=== PATIENT | male | born 1985 | race Caucasian/White ===

== ENCOUNTER 2017-03-21 18:04 | Emergency (ER) | payer OTHER ==
[2017-03-21] MEDS ORDERED: IPRATROPIUM-ALBUTEROL 3 ML NEB INHALATION STA (19:28)
--- NOTE | 2017-03-21 19:33 | ED ---
General Adult HPI - General Chief complaint: Shortness of Breath Stated complaint: Diff Breathing, congested Time Seen by Provider: 03/21/17 18:15 Source: patient, RN notes reviewed Mode of arrival: ambulatory Limitations: no limitations - History of Present Illness Initial comments: This is a 31-year-old male who has a past medical history significant for smoking which she continues to do. Patient states he woke up this morning and was having some shortness of breath and a slight cough. Patient states occasionally had some right-sided chest pain when he was coughing but other night he feels fine. Patient denies any fever chills. Patient states his shortness of breath is only mild. Patient's denies any sputum production. Patient denies any abdominal pain. Patient states she did not follow up today with his primary medical care doctor he worked all day instead. Patient denies any headache patient denies lightheadedness dizziness or near syncopal episode. Patient denies any recent travel or trip. Patient denies any calf pain or leg swelling. - Related Data Previous Rx's Medication Instructions Recorded Albuterol Inhaler [Ventolin Hfa 1 - 2 puff INHALATION Q6HR PRN #2 03/21/17 Inhaler] puff predniSONE 40 mg PO DAILY #8 tab 03/21/17 Allergies Allergy/AdvReac Type Severity Reaction Status Date / Time cefazolin [From Anc] Allergy Rash/Hives Verified 03/21/17 18:17 Review of Systems ROS Statement: Those systems with pertinent positive or pertinent negative responses have been documented in the HPI. ROS Other: All systems not noted in ROS Statement are negative. Past Medical History Additional Past Medical History / Comment(s): right sided lung nodule History of Any Multi-Drug Resistant Organisms: None Reported Additional Past Surgical History / Comment(s): nasal surgery Past Psychological History: No Psychological Hx Reported Smoking Status: Current every day smoker Past Alcohol Use History: Occasional Past Drug Use History: None Reported General Exam - General Exam Comments Initial Comments: GENERAL: Patient is well-developed and well-nourished. Patient is nontoxic and well- hydrated and is in mild distress. ENT: Neck is soft and supple. No significant lymphadenopathy is noted. Oropharynx is clear. Moist mucous membranes. Neck has full range of motion without eliciting any pain. EYES: The sclera were anicteric and conjunctiva were pink and moist. Extraocular movements were intact and pupils were equal round and reactive to light. Eyelids were unremarkable. PULMONARY: Unlabored respirations. Good breath sounds bilaterally. No audible rales rhonchi or wheezing was noted. CARDIOVASCULAR: There is a regular rate and rhythm without any murmurs gallops or rubs. ABDOMEN: Soft and nontender with normal bowel sounds. No palpable organomegaly was noted. There is no palpable pulsatile mass. SKIN: Skin is clear with no lesions or rashes and otherwise unremarkable. NEUROLOGIC: Patient is alert and oriented x3. Cranial nerves II through XII are grossly intact. Motor and sensory are also intact. Normal speech, volume and content. Symmetrical smile. MUSCULOSKELETAL: Normal extremities with adequate strength and full range of motion. LYMPHATICS: No significant lymphadenopathy is noted PSYCHIATRIC: Normal psychiatric evaluation. Limitations: no limitations Course Vital Signs 03/21/17 03/21/17 03/21/17 18:13 19:43 19:53 Temperature 97 F L Pulse Rate 93 90 92 Respiratory 18 Rate Blood Pressure 131/75 O2 Sat by Pulse 98 Oximetry 03/21/17 20:02 Temperature Pulse Rate 84 Respiratory 17 Rate Blood Pressure 128/73 O2 Sat by Pulse 99 Oximetry Medical Decision Making - Medical Decision Making EKG shows normal sinus rhythm at 73 bpm KS interval 230 QRS is under 2 QT interval 366 QTC is 403. Patient's chest x-ray shows no acute abnormality. Patient got a breathing treatment emergency department he stated that if they didn't feel better. Disposition Clinical Impression: Acute bronchospasm Disposition: HOME SELF-CARE Condition: Good Instructions: Bronchospasm (ED) Prescriptions: Albuterol Inhaler [Ventolin Hfa Inhaler] 1 - 2 puff INHALATION Q6HR PRN #2 puff PRN Reason: Difficulty breathing predniSONE 40 mg PO DAILY #8 tab Referrals: Joel Desai DO [Primary Care Provider] - 1-2 days Time of Disposition: 20:38
--- NOTE | 2017-03-21 20:22 | XR ---
EXAMINATION TYPE: XR chest 2V DATE OF EXAM: 03/21/2017 COMPARISON: 10/04/2012 HISTORY: Right-sided chest pain with headache TECHNIQUE: Frontal and lateral views of the chest are obtained. FINDINGS: There is no focal air space opacity, pleural effusion, or pneumothorax seen. The cardiac silhouette size is within normal limits. The osseous structures are intact. IMPRESSION: No acute cardiopulmonary process.
[2017-03-21] MEDS ORDERED: predniSONE 50 MG TAB PO STA (20:38)
[2017-03-21 20:53] VITALS: BP 122/59; PULSE 75; RESP 16; TEMP 97.8
== END 2017-03-21 21:04 | disposition home or self-care (01) ==
LOC: EC 18:04
DX: J98.01 Acute bronchospasm (principal); R91.1 Solitary pulmonary nodule; F17.200 Nicotine dependence, unspecified, uncomplicated; Z88.1 Allergy status to other antibiotic agents
CPT/HCPCS: 94640; 93005; 71020; 99285; J7512

== ENCOUNTER → 2018-09-27 | Outpatient (CLI) | payer BC ==
--- NOTE | 2018-09-27 09:36 | CT ---
EXAMINATION TYPE: CT chest wo con DATE OF EXAM: 09/27/2018 COMPARISON: 09/12/2010 HISTORY: Lung nodule CT DLP: 157.2 mGycm. Automated Exposure Control for Dose Reduction was Utilized. TECHNIQUE: CT scan of the thorax is performed without IV contrast. FINDINGS: LUNGS: Previous exam there was a cavitating nodule within the right lung measuring 1 x 1.2 cm. Today' s exam there is significant interval reduction with a small residual nodule measuring 0.65 x 0.3 cm. No pleural effusion or pneumothorax. No consolidative pneumonia. Vague 2 mm nodule left lung base is nonspecific but retrospectively stable. No overt failure. MEDIASTINUM: Lack of IV contrast is noted to limit evaluation for mediastinal and especially hilar ad enopathy. There are no definitive greater than 1 cm hilar or mediastinal lymph nodes. No cardiomega ly or pericardial effusion is seen. OTHER: No additional significant abnormality is seen. IMPRESSION: 1. Interval marked reduction in size of the right-sided pulmonary nodule which now measures 0.65 x 0. 3 cm and previously measured 1 x 1.2 cm. 2. Additional 2 mm left lung base nodule is stable.
== END | disposition home or self-care (01) ==
LOC: RADCTMAIN 07:17
PROVIDERS: ATTEND Family Medicine
DX: R91.8 Other nonspecific abnormal finding of lung field (principal)
CPT/HCPCS: 71250

== ENCOUNTER 2019-06-05 21:33 | Emergency (ER) | payer BC, OTHER ==
[2019-06-05] MEDS ORDERED: ACETAMINOPHEN TAB 325 MG TAB PO STA (22:13)
--- NOTE | 2019-06-05 22:17 | ED ---
Fever HPI - General Chief Complaint: Fever Stated Complaint: Fever Time Seen by Provider: 06/05/19 21:47 Source: patient Mode of arrival: ambulatory Limitations: no limitations - History of Present Illness Initial Comments: This patient is 33-year-old man who presents to be evaluated for constellation of symptoms that includes fever, body aches, sore throat, and mild headache. Patient states that his symptoms started on Sunday night and it progressively worse. He has been taking ibuprofen which does relieve the fever but it tends to recur. MD Complaint: fever, malaise Onset/Timin -: days(s) Temperature Source: oral Context: sick contacts Associated Symptoms: chills, myalgias, headache, sore throat Treatments Prior to Arrival: Ibuprofen - Related Data Previous Rx's Medication Instructions Recorded Albuterol Inhaler [Ventolin Hfa 1 - 2 puff INHALATION Q6HR PRN #2 03/21/17 Inhaler] puff predniSONE 40 mg PO DAILY #8 tab 03/21/17 Lidocaine Viscous [Xylocaine 5 ml PO Q3HR PRN #100 ml 06/05/19 Viscous 2%] Allergies Allergy/AdvReac Type Severity Reaction Status Date / Time cefazolin [From Ancef] Allergy Rash/Hives Verified 06/05/19 21:37 Review of Systems ROS Statement: Those systems with pertinent positive or pertinent negative responses have been documented in the HPI. ROS Other: All systems not noted in ROS Statement are negative. Constitutional: Reports: fever, chills ENT: Reports: throat pain Respiratory: Denies: dyspnea Cardiovascular: Denies: chest pain, edema Gastrointestinal: Denies: abdominal pain, nausea, vomiting, diarrhea Genitourinary: Denies: dysuria, hematuria, testicular pain Musculoskeletal: Denies: back pain Skin: Denies: rash Neurological: Reports: headache. Denies: weakness, numbness, paresthesias Past Medical History Additional Past Medical History / Comment(s): right sided lung nodule History of Any Multi-Drug Resistant Organisms: None Reported Additional Past Surgical History / Comment(s): nasal surgery Past Psychological History: No Psychological Hx Reported Smoking Status: Current every day smoker Past Alcohol Use History: Occasional Past Drug Use History: None Reported General Exam Limitations: no limitations General appearance: alert, in no apparent distress Head exam: Present: atraumatic, normocephalic Eye exam: Present: normal appearance, PERRL, EOMI. Absent: scleral icterus, conjunctival injection ENT exam: Present: mucous membranes moist, other (There is injection of the pharynx. Uvula is midline with no edema.). Absent: normal oropharynx Neck exam: Present: normal inspection, full ROM, lymphadenopathy. Absent: meningismus Respiratory exam: Present: normal lung sounds bilaterally. Absent: respiratory distress, wheezes, rales, rhonchi, stridor Cardiovascular Exam: Present: normal rhythm, tachycardia, normal heart sounds. Absent: systolic murmur, diastolic murmur, rubs, gallop GI/Abdominal exam: Present: soft. Absent: distended, tenderness, guarding, rebound, rigid, mass Extremities exam: Present: normal inspection, normal capillary refill. Absent: pedal edema, calf tenderness Back exam: Present: normal inspection. Absent: CVA tenderness (R), CVA tenderness (L) Neurological exam: Present: alert Skin exam: Present: warm, intact, normal color, diaphoretic. Absent: rash, petechiae, pallor, mottled Course Vital Signs 06/05/19 06/05/19 06/05/19 21:34 21:40 22:33 Temperature 98.8 F 100.5 F H Pulse Rate 144 H 97 Respiratory 20 20 Rate Blood Pressure 129/70 112/70 O2 Sat by Pulse 96 97 Oximetry Medical Decision Making - Lab Data Lab Results 06/05/19 06/05/19 Range/Units 21:55 22:38 Influenza Type A RNA Not Detected (Not Detectd) Influenza Type B (PCR) Not Detected (Not Detectd) Group A Strep Rapid Negative (Negative) Disposition Clinical Impression: Viral syndrome Disposition: HOME SELF-CARE Condition: Good Instructions (If sedation given, give patient instructions): Fever in Adults (ED), Viral Syndrome (ED) Prescriptions: Lidocaine Viscous [Xylocaine Viscous 2%] 5 ml PO Q3HR PRN #100 ml PRN Reason: Sore Throat Is patient prescribed a controlled substance at d/c from ED?: No Referrals: Joel Desai DO [Primary Care Provider] - 1-2 days
--- NOTE | 2019-06-05 23:34 | XR ---
EXAMINATION TYPE: XR chest 2V DATE OF EXAM: 06/05/2019 COMPARISON: 03/21/2017 HISTORY: Short of breath TECHNIQUE: Frontal and lateral views of the chest are obtained. FINDINGS: Heart and mediastinum are normal. Lungs are clear. Diaphragm is normal. Bony thorax appear s normal. Pulmonary vascularity is normal. IMPRESSION: Normal chest. No change.
[2019-06-06] MEDS ORDERED: LIDOCAINE VISCOUS 2% 15 ML CUP MUCOUS MEM STA (00:05)
[2019-06-06 00:15] VITALS: BP 109/53; PULSE 86; RESP 18; TEMP 98.2
== END 2019-06-06 00:15 | disposition home or self-care (01) ==
LOC: EC 21:33
DX: B34.9 Viral infection, unspecified (principal); F17.200 Nicotine dependence, unspecified, uncomplicated; Z88.1 Allergy status to other antibiotic agents
CPT/HCPCS: 71046; 87081; 87430; 87502; 99283

== ENCOUNTER 2022-07-11 15:11 | Emergency (ER) | payer BC ==
[2022-07-11] MEDS ORDERED: ACETAMINOPHEN TAB 325 MG TAB PO STA (15:32)
[2022-07-11] MEDS ORDERED: SODIUM CHLORIDE 0.9% 1,000 ML IV ONE (15:32)
[2022-07-11 16:04] LABS: Basophils % (A) 0 %; Eosinophils # (A) 0.2 k/uL (0-0.7); Eosinophils % (A) 1 %; HCT 45.6 % (39.0-53.0); HGB 15.1 gm/dL (13.0-17.5); Lymphocytes # (A) 0.5 k/uL (1.0-4.8); Lymphocytes % (A) 4 %; MCHC 33.1 g/dL (31.0-37.0); MCV 87.5 fL (80.0-100.0); Monocytes # (A) 0.5 k/uL (0-1.0); Monocytes % (A) 3 %; Neutrophils # (A) 13.9 k/uL (1.3-7.7); Neutrophils % (A) 91 %; Platelet Count 245 k/uL (150-450); RBC 5.21 m/uL (4.30-5.90); RDW 12.6 % (11.5-15.5); WBC 15.3 k/uL (3.8-10.6)
[2022-07-11 16:15] LABS: ALT 29 U/L (4-49); AST 23 U/L (17-59); African American GFR (CKD) >90 (>60 ml/min/1.73 sqM); Albumin 4.3 g/dL (3.5-5.0); Alkaline Phosphatase 81 U/L (38-126); Anion Gap 9 mmol/L; Blood Urea Nitrogen 15 mg/dL (9-20); Calcium 8.8 mg/dL (8.4-10.2); Carbon Dioxide 24 mmol/L (22-30); Chloride 104 mmol/L (98-107); Glucose 109 mg/dL (74-99); Magnesium 1.7 mg/dL (1.6-2.3); Non-African American GFR(CKD) >90 (>60 ml/min/1.73 sqM); Sodium 137 mmol/L (137-145); Total Bilirubin 0.5 mg/dL (0.2-1.3); Total Protein 6.9 g/dL (6.3-8.2)
[2022-07-11 16:25] LABS: INR 0.9 (<1.2); Partial Thromboplastin Time 25.2 sec (22.0-30.0)
--- NOTE | 2022-07-11 16:26 | XR ---
EXAMINATION TYPE: XR chest 2V DATE OF EXAM: 07/11/2022 4:22 PM COMPARISON: Chest radiographs from 06/05/2019 TECHNIQUE: XR chest 2V Frontal and lateral views of the chest. CLINICAL INDICATION:Male, 36 years old with history of cough; FINDINGS: Lungs/Pleura: There is no evidence of pleural effusion, focal consolidation, or pneumothorax. Pulmonary vascularity: Unremarkable. Heart/mediastinum: Cardiomediastinal silhouette is unremarkable. Musculoskeletal: No acute osseous pathology. IMPRESSION: No acute cardiopulmonary disease/process.
--- NOTE | 2022-07-11 16:33 | ED ---
General Adult HPI - General Chief complaint: Upper Respiratory Infection Stated complaint: body aches, abd pain Time Seen by Provider: 07/11/22 15:19 Source: patient, RN notes reviewed Mode of arrival: ambulatory Limitations: no limitations - History of Present Illness Initial comments: 36-year-old male with a history of a right bundle branch block presenting to the emergency department for fever, cough, and sore throat x 3 days. He reports accompanying symptoms of nausea, vomiting, and diarrhea last week. He reports that his daughter is also sick at home however has different symptoms. He denies receiving COVID/influenza vaccinations. He denies chest pain, shortness of breath, palpitations, dyspnea, abdominal pain. - Related Data Home Medications Medication Instructions Recorded Confirmed No Known Home Medications 07/11/22 07/11/22 Allergies Allergy/AdvReac Type Severity Reaction Status Date / Time cefazolin [From Ancef] Allergy Rash/Hives Verified 07/11/22 17:10 Review of Systems ROS Statement: Those systems with pertinent positive or pertinent negative responses have been documented in the HPI. ROS Other: All systems not noted in ROS Statement are negative. Past Medical History Additional Past Medical History / Comment(s): right sided lung nodule History of Any Multi-Drug Resistant Organisms: None Reported Additional Past Surgical History / Comment(s): nasal surgery Past Psychological History: No Psychological Hx Reported Smoking Status: Former smoker Past Alcohol Use History: Occasional Past Drug Use History: None Reported General Exam Limitations: no limitations General appearance: alert, in no apparent distress Head exam: Present: atraumatic, normocephalic, normal inspection Eye exam: Present: normal appearance, PERRL, EOMI. Absent: scleral icterus, conjunctival injection, periorbital swelling ENT exam: Present: normal exam, mucous membranes moist Neck exam: Present: normal inspection. Absent: tenderness, meningismus, lymphadenopathy Respiratory exam: Present: normal lung sounds bilaterally. Absent: respiratory distress, wheezes, rales, rhonchi, stridor Cardiovascular Exam: Present: normal rhythm, tachycardia, normal heart sounds. Absent: systolic murmur, diastolic murmur, rubs, gallop, clicks GI/Abdominal exam: Present: soft, normal bowel sounds. Absent: distended, tenderness, guarding, rebound, rigid Extremities exam: Present: normal inspection, full ROM, normal capillary refill. Absent: tenderness, pedal edema, joint swelling, calf tenderness Back exam: Present: normal inspection Neurological exam: Present: alert, oriented X3, CN II-XII intact Psychiatric exam: Present: normal affect, normal mood Skin exam: Present: warm, dry, intact, normal color. Absent: rash Course Vital Signs 07/11/22 07/11/22 07/11/22 15:12 16:05 16:39 Temperature 98.3 F 101.5 F H Pulse Rate 130 H Respiratory 20 18 Rate Blood Pressure 114/80 EKG Findings - EKG Comments: EKG Findings:: I interpreted the following: Ekg performed at 15:55. 104 bpm, NSR with RBBB (not new when compared to previous). NV 123, QRS 101, QT/Qtc 302/362 Medical Decision Making - Medical Decision Making Was pt. sent in by a medical professional or institution (EVON Shi, CUSTOMER RELATIONS COORDINATOR, urgent care, hospital, or residential...) When possible be specific @ -[No] Did you speak to anyone other than the patient for history (EMS, parent, family, police, friend...)? What history was obtained from this source @ -[No] Did you review nursing and triage notes (agree or disagree)? Why? @ -[I reviewed and agree with nursing and triage notes] Were old charts reviewed (outside hosp., previous admission, EMS record, old EKG, old radiological studies, urgent care reports/EKG's, residential records)? Report findings @ -[No old charts were reviewed] Differential Diagnosis (chest pain, altered mental status, abdominal pain women, abdominal pain men, vaginal bleeding, weakness, fever, dyspnea, syncope, headache, dizziness, GI bleed, back pain, seizure, CVA, palpatations, mental health)? @ -[not applicable] EKG interpreted by me (3pts min.). @ -[As above] X-rays interpreted by me (1pt min.). @ -Negative for any pleural process CT interpreted by me (1pt min.). @ -[None done] U/S interpreted by me (1pt. min.). @ -[None done] What testing was considered but not performed or refused? (CT, X-rays, U/S, labs)? Why? @ -[None] What meds were considered but not given or refused? Why? @ -[None] Did you discuss the management of the patient with other professionals (professionals i.e. DrOseas, PA, CUSTOMER RELATIONS COORDINATOR, lab, RT, psych nurse, clinical social work aide, curb builder, teacher, admitting officer, clinical case manager)? Give summary @ -[No] Was smoking cessation discussed for >3mins.? @ -[No] Was critical care preformed (if so, how long)? @ -[No] Were there social determinants of health that impacted care today? How? (Homelessness, low income, unemployed, alcoholism, drug addiction, transportation, low edu. Level, literacy, decrease access to med. care, long term, rehab)? @ -[No] Was there de-escalation of care discussed even if they declined (Discuss DNR or withdrawal of care, Hospice)? DNR status @ -[No] What co-morbidities impacted this encounter? (DM, HTN, Smoking, COPD, CAD, Cancer, CVA, ARF, Chemo, Hep., AIDS, mental health diagnosis, sleep apnea, morbid obesity)? @ -[None] Was patient admitted / discharged? Hospital course, mention meds given and route, prescriptions, significant lab abnormalities, going to OR and other pertinent info. @ -36-year-old male presents to the emergency department with fever and generalized body aches. Patient had a history and a physical, : Exam is essentially unremarkable. Patient is tachycardic likely due to being febrile. I discussed the results in detail with the patient, his questions and comments were addressed. He was given Toradol and 1 liter of IV fluids with symptomatic improvement while in the emergency department. He is agreeable with the plan for discharge with recommended follow up with PCP in 1-2 days. T I discussed the case with Dr. Marianne BOLAÑOS who agrees with the plan of care Undiagnosed new problem with uncertain prognosis? @ -Acute viral syndrome Drug Therapy requiring intensive monitoring for toxicity (Heparin, Nitro, Insulin, Cardizem)? @ -[No] Were any procedures done? @ -[No] Diagnosis/symptom? @ -Acute viral syndrome Acute, or Chronic, or Acute on Chronic? @ -acute Uncomplicated (without systemic symptoms) or Complicated (systemic symptoms)? @ -uncomplicated Side effects of treatment? @ -[No] Exacerbation, Progression, or Severe Exacerbation? @ -[No] Poses a threat to life or bodily function? How? (Chest pain, [place], [place], pneumonia, PE, COPD, DKA, ARF, appy, cholecystitis, CVA, Diverticulitis, Homicidal, Suicidal, threat to staff... and all critical care pts) @ -low likelihood - Lab Data Result diagrams: 07/11/22 15:45 07/11/22 15:45 Lab Results 07/11/22 07/11/22 07/11/22 Range/Units 15:45 15:45 15:45 WBC 15.3 H (3.8-10.6) k/uL RBC 5.21 (4.30-5.90) m/uL Hgb 15.1 (13.0-17.5) gm/dL Hct 45.6 (39.0-53.0) % MCV 87.5 (80.0-100.0) fL MCH 29.0 (25.0-35.0) pg MCHC 33.1 (31.0-37.0) g/dL RDW 12.6 (11.5-15.5) % Plt Count 245 (150-450) k/uL MPV 8.0 Neutrophils % 91 % Lymphocytes % 4 % Monocytes % 3 % Eosinophils % 1 % Basophils % 0 % Neutrophils # 13.9 H (1.3-7.7) k/uL Lymphocytes # 0.5 L (1.0-4.8) k/uL Monocytes # 0.5 (0-1.0) k/uL Eosinophils # 0.2 (0-0.7) k/uL Basophils # 0.0 (0-0.2) k/uL PT 10.0 (9.0-12.0) sec INR 0.9 (<1.2) APTT 25.2 (22.0-30.0) sec D-Dimer 0.38 (<0.60) mg/L FEU Sodium 137 (137-145) mmol/L Potassium 4.0 (3.5-5.1) mmol/L Chloride 104 (98-107) mmol/L Carbon Dioxide 24 (22-30) mmol/L Anion Gap 9 mmol/L BUN 15 (9-20) mg/dL Creatinine 0.77 (0.66-1.25) mg/dL Est GFR (CKD-EPI)AfAm >90 (>60 ml/min/1.73 sqM) Est GFR (CKD-EPI)NonAf >90 (>60 ml/min/1.73 sqM) Glucose 109 H (74-99) mg/dL Calcium 8.8 (8.4-10.2) mg/dL Magnesium 1.7 (1.6-2.3) mg/dL Total Bilirubin 0.5 (0.2-1.3) mg/dL AST 23 (17-59) U/L ALT 29 (4-49) U/L Alkaline Phosphatase 81 (38-126) U/L Troponin I (0.000-0.034) ng/mL Total Protein 6.9 (6.3-8.2) g/dL Albumin 4.3 (3.5-5.0) g/dL Influenza Type A (PCR) (Not Detectd) Influenza Type B (PCR) (Not Detectd) RSV (PCR) (Not Detectd) SARS-CoV-2 (PCR) (Not Detectd) 07/11/22 07/11/22 Range/Units 15:45 16:00 WBC (3.8-10.6) k/uL RBC (4.30-5.90) m/uL Hgb (13.0-17.5) gm/dL Hct (39.0-53.0) % MCV (80.0-100.0) fL MCH (25.0-35.0) pg MCHC (31.0-37.0) g/dL RDW (11.5-15.5) % Plt Count (150-450) k/uL MPV Neutrophils % % Lymphocytes % % Monocytes % % Eosinophils % % Basophils % % Neutrophils # (1.3-7.7) k/uL Lymphocytes # (1.0-4.8) k/uL Monocytes # (0-1.0) k/uL Eosinophils # (0-0.7) k/uL Basophils # (0-0.2) k/uL PT (9.0-12.0) sec INR (<1.2) APTT (22.0-30.0) sec D-Dimer (<0.60) mg/L FEU Sodium (137-145) mmol/L Potassium (3.5-5.1) mmol/L Chloride (98-107) mmol/L Carbon Dioxide (22-30) mmol/L Anion Gap mmol/L BUN (9-20) mg/dL Creatinine (0.66-1.25) mg/dL Est GFR (CKD-EPI)AfAm (>60 ml/min/1.73 sqM) Est GFR (CKD-EPI)NonAf (>60 ml/min/1.73 sqM) Glucose (74-99) mg/dL Calcium (8.4-10.2) mg/dL Magnesium (1.6-2.3) mg/dL Total Bilirubin (0.2-1.3) mg/dL AST (17-59) U/L ALT (4-49) U/L Alkaline Phosphatase (38-126) U/L Troponin I <0.012 (0.000-0.034) ng/mL Total Protein (6.3-8.2) g/dL Albumin (3.5-5.0) g/dL Influenza Type A (PCR) Not Detected (Not Detectd) Influenza Type B (PCR) Not Detected (Not Detectd) RSV (PCR) Not Detected (Not Detectd) SARS-CoV-2 (PCR) Not Detected (Not Detectd) Disposition Clinical Impression: Acute viral syndrome Disposition: HOME SELF-CARE Instructions (If sedation given, give patient instructions): Upper Respiratory Infection (ED) Additional Instructions: Please return to the nearest emergency department if worsening cough, shortness of breath, chest pain develops. Is patient prescribed a controlled substance at d/c from ED?: No Referrals: Joel Desai DO [Primary Care Provider] - 1-2 days Time of Disposition: 17:07
[2022-07-11 17:32] VITALS: BP 100/63; PULSE 104; RESP 15; TEMP 100.7
== END 2022-07-11 17:32 | disposition home or self-care (01) ==
LOC: EC 15:11
DX: B34.9 Viral infection, unspecified (principal); Z88.1 Allergy status to other antibiotic agents; Z87.891 Personal history of nicotine dependence; Z20.822 Contact with and (suspected) exposure to COVID-19
CPT/HCPCS: 36415; 71046; 80053; 83735; 84484; 85025; 85379; 85610; 85730; 87636; 93005; 96360; 96361; 99284

== ENCOUNTER → 2023-09-13 | Outpatient (CLI) | payer BC ==
--- NOTE | 2023-09-13 09:40 | US ---
EXAMINATION TYPE: US axilla RT DATE OF EXAM: 09/13/2023 COMPARISON: NONE CLINICAL INDICATION: Male, 38 years old with history of N63.31 UNSPECIFIED LUMP IN AXILLARY TAIL OF T HE RI; hard cord like palpable area at the right lateral axilla x 2 weeks. Was a golfball sized painf ul lump but is now resolving and painless TECHNIQUE: Ict Development Manager notes: several images taken at the area of palpable and contralateral side fo r comparison. FINDINGS: Ict Development Manager notes: the palpable area corresponds to muscle, no discrete abnormality appreci ated IMPRESSION: Targeted ultrasound of the patient's right axillary lump at the area of concern shows pr ominent muscle. No discrete solid or cystic lesion or abnormal fluid collection is seen.
== END | disposition home or self-care (01) ==
LOC: RADUSWWP 08:30
PROVIDERS: ATTEND Family Medicine
DX: N63.31 Unspecified lump in axillary tail of the right breast (principal)

== ENCOUNTER → 2024-02-11 | Outpatient (CLI) | payer BC | END | disposition home or self-care (01) | LOC: LABPRL 15:55 | PROVIDERS: ATTEND Family Medicine | CPT/HCPCS: 80053; 85025; 85652; 86038; 86431; 86618 ==

== ENCOUNTER 2024-11-13 07:51 | Day surgery (SDC) | payer BC ==
[2024-11-11 10:20] VITALS: BMI 24.4
[~2024-11-13 07:51] MED LIST: DEXAMETHASONE SOD PHOSPHATE 4 MG/ML 1 ML VIAL IV ONE; HYDROmorphone 0.5 MG/0.5 ML SYRINGE IVP PRN; ONDANSETRON 4 MG/2 ML VIAL IVP ONE
[2024-11-13] MEDS: IV FLUID CONTINUATION 1,000 ML IV ONE (08:13)
[2024-11-13 08:19] VITALS: TEMP 98
[2024-11-13] MEDS: LACTATED RINGERS 1,000 ML IV SCH (08:23)
[2024-11-13] MEDS ORDERED: PROPOFOL 10 MG/ML 20 ML VIAL IV ONE (08:56)
[2024-11-13] MEDS ORDERED: LIDOCAINE 2% (PF) 20 MG/ML 5 ML VIAL ONE (08:56)
--- NOTE | 2024-11-13 09:13 | P.PCN ---
Date of Procedure: 11/13/24 Preoperative Diagnosis: GERD Postoperative Diagnosis: GERD Gastritis Hiatal hernia Procedure(s) Performed: EGD with biopsy Anesthesia: MAC Surgeon: Rd Barrientos Pathology: other (Biopsy of antrum, duodenum, GE junction) Condition: stable Disposition: same day Indications for Procedure: 39-year-old male with history of GERD. He has started omeprazole 20 mg daily and has had some improvement. States he continues to have emesis secondary to reflux. Denies any blood in his emesis. Risks, benefits and alternatives provided to the patient. Operative Findings: Gastritis Hiatal hernia Description of Procedure: The patient was brought into the endoscopy suite and placed in left lateral decubitus position. Adequate sedation was achieved using conscious sedation. A bite-block was placed and an endoscope was placed in the oropharynx and advanced under endoscopic visualization. The endoscope was advanced through the esophagus into the stomach, through the gastric antrum and in through the pylorus. The third portion of duodenum was visualized. The endoscope was then slowly withdrawn. The first portion of duodenum was noted to have mild inflammatory changes. Biopsies were taken. The antrum was noted to have inflammatory changes. Biopsies were taken. The gastric body distended normally and the gastric folds appeared normal and flattened with insufflation. A retroflexed view of the fundus and GE junction revealed mild to moderate-sized hiatal hernia. GE junction appeared somewhat inflamed and biopsies were taken. The esophagus appeared endoscopically normal. Excess air was removed and the scope was withdrawn and the procedure was completed. The patient was sent to PACU in stable condition. Recommended increasing dose of omeprazole to 40 mg daily
[2024-11-13 09:16] VITALS: PULSE 74
[2024-11-13 09:43] VITALS: BP 109/76; RESP 16
== END 2024-11-13 10:03 | disposition home or self-care (01) ==
LOC: ORWHC2ENDO 07:51
PROVIDERS: ATTEND Surgery
DX: K22.10 Ulcer of esophagus without bleeding (principal); K29.70 Gastritis, unspecified, without bleeding; K44.9 Diaphragmatic hernia without obstruction or gangrene; K21.9 Gastro-esophageal reflux disease without esophagitis; Z79.899 Other long term (current) drug therapy; Z88.8 Allergy status to other drugs, medicaments and biological substances
CPT/HCPCS: 43239; J2704; J2003; 88305